=== PATIENT | female | born 1995 | race Caucasian/White ===

== ENCOUNTER 2021-12-02 09:12 | Emergency (ER) | payer BC ==
[~2021-12-02] VITALS: Ht 175.3 cm; Wt 81.6 kg
[2021-12-02 09:28] VITALS: BP 140/85
[2021-12-02] MEDS ORDERED: TORADOL IM STA (09:36)
[2021-12-02] MEDS ORDERED: TORADOL ONE (09:40)
--- NOTE | 2021-12-02 09:40 | ER.PDOC ---
General Chief Complaint: Flank Pain Stated Complaint: FLANK PAIN Time seen by MD: 09:39 Source: patient Exam Limitations: no limitations History of Present Illness Initial Comments Right flank pain radiating to right lower quadrant for the last few days. No fever or chills. She has had kidney stones in the past. She complains of sinus pain, pressure and congestion for the last few days. Severity/Quality: moderate, sharpness Radiation: RLQ Associated Symptoms: nausea/vomiting Exacerbated by: nothing Relieved By: nothing Vital Signs First Vital Signs Date Time Temp Pulse Resp B/P (MAP) Pulse Ox O2 Delivery O2 Flow Rate FiO2 12/02/21 09:28 98.4 82 18 7 09:28 97 12/02/21 09:28 140/85 (103) Room Air* 0 21 Last Vital Signs Date Time Temp Pulse Resp B/P (MAP) Pulse Ox O2 Delivery O2 Flow Rate FiO2 12/02/21 09:28 98.4 82 18 140/85 (103) 97 Room Air* 0 21 Past Medical History Medical History: other (kidney stone) Surgical History: no surgical history Family History Significant Family History: no pertinent family hx Social History Smoking: non-smoker Alcohol Use: rarely Drug Use: none Constitutional: no symptoms reported EENTM: no symptoms reported Respiratory: no symptoms reported Cardiovascular: no symptoms reported Gastrointestinal: see HPI Genitourinary: see HPI All Other Systems: Reviewed and Negative Physical Exam General Appearance: No Apparent Distress, WD/WN HEENT: PERRL/EOMI, Normal ENT Inspection, Other (maxillary sinus tenderness) Neck: Non-Tender, Full Range of Motion, Supple, Normal Inspection Respiratory: chest non-tender, lungs clear, normal breath sounds, no respiratory distress, no accessory muscle use Cardiovascular: Normal Peripheral Pulses, Regular Rate, Rhythm, No Edema, No Gallop, No JVD, No Murmur Gastrointestinal: Normal Bowel Sounds, No Organomegaly, Non Tender Back: CVA Tenderness (R) Extremities: Normal Range of Motion, Non-Tender, Normal Inspection, No Pedal Edema, No Calf Tenderness, Normal Capillary Refill, Pelvis Stable Neurologic/Psychiatric: case management social worker II-XII NML as Tested, No Motor/Sensory Deficits, Alert, Normal Mood/Affect, Oriented x 3 Skin: Normal Color, Warm/Dry Lymphatic: No Adenopathy Results/Orders Results/Orders Orders - KELLY MELENDEZ MD Cbc With Auto Diff (12/02/21 09:36) Comprehensive Metabolic Panel (12/02/21 09:36) PT (12/02/21 09:36) Partial Thromboplastin Time. (12/02/21 09:36) Urinalysis (12/02/21 09:36) Ct Abd/Pelvis Wo Iv Contrast (12/02/21 09:36) Ketorolac Tromethamine (Toradol) (12/02/21 09:36) Hcg Urine (12/02/21 09:38) 0.9 % Sodium Chloride (Ns 1000ml) (12/02/21 10:19) 0.9 % Sodium Chloride (Ns 1000ml) (12/02/21 10:20) Vital Signs Date Time Temp Pulse Resp B/P (MAP) Pulse Ox O2 Delivery O2 Flow Rate FiO2 12/02/21 09:28 98.4 82 18 140/85 (103) 97 Room Air* 0 21 12/02/21 09:28 98.4 82 18 97 12/02/21 09:28 98.4 82 18 Administered Medications Medications (Trade) Dose Ordered Sig/Amena Route PRN Reason Start Time Stop Time Status Last Admin Dose Admin Ketorolac Tromethamine (Toradol) 60 mg STAT STAT IM 12/02/21 09:36 12/02/21 09:37 UNV 12/02/21 09:45 60 MG Sodium Chloride 1,000 ml @ 1,200 mls/hr Q50M STAT IV 12/02/21 10:19 12/02/21 11:08 DC 12/02/21 10:22 1,200 MLS/HR Laboratory Tests Test 12/02/21 09:20 12/02/21 10:03 Urine Collection Type CCMS Urine Color YELLOW Urine Appearance CLOUDY Urine Bilirubin NEGATIVE (NEGATIVE) Urine Ketones 1+ (NEGATIVE) H Urine Specific [place] 1.010 (1.005-1.030) Urine pH 5.5 (4.5-8.0) Urine Protein NEGATIVE (NEGATIVE) Urine Urobilinogen 0.2 E.U./dL (0.2) Urine Nitrate NEGATIVE (NEGATIVE) Urine Leukocyte Esterase NEGATIVE (NEGATIVE) Urine Glucose (Auto)(UA) NEGATIVE (NEGATIVE) Urine Blood 2+ (NEGATIVE) H Urine RBC 2-5 RBC/HPF (NONE SEEN) Urine WBC 0-2 WBC/HPF (0-2) Urine Squamous Epithelial Cells FEW (<=FEW) Urine Bacteria FEW (NONE SEEN) H Urine HCG, Qualitative NEGATIVE (NEGATIVE) White Blood Count 17.1 10^3/uL (4.5-11.0) H Red Blood Count 4.29 10^6/uL (4.00-5.20) Hemoglobin 13.3 g/dL (12.0-15.0) Hematocrit 40.4 % (36.0-46.0) Mean Corpuscular Volume 94.2 fL (78-100) Mean Corpuscular Hemoglobin 31.0 pg (26-34) Mean Corpuscular Hemoglobin Concent 32.9 g/dL (33-36.5) L Red Cell Distribution Width 13.1 % (11.5-14.5) Platelet Count 215 10^3/uL (150-400) Mean Platelet Volume 9.8 fL (7.8-11.0) Neutrophils (%) (Auto) 84.2 % (41.0-85.0) Lymphocytes (%) (Auto) 8.1 % (24.0-44.0) L Monocytes (%) (Auto) 7.1 % (5.0-12.0) Neutrophils # (Auto) 14.4 10^3/uL (1.8-7.7) H Lymphocytes # (Auto) 1.39 10^3/uL1 (1.0-4.8) Monocytes # (Auto) 1.2 10^3/uL (0.3-0.8) H Absolute Immature Granulocyte (auto 0.05 10^3 u/L (0-2) Absolute Eosinophils (auto) 0.0 10^3/uL (0.0-0.2) Immature Granulocytes % 0.30 % (0.00-0.50) Eosinophils % 0.1 % (0.0-5.0) Basophils % 0.2 % (0.0-0.2) Basophils # 0.0 10^3/uL (0.0-0.1) Prothrombin Time 11.5 SEC (9.1-11.5) Prothrombin Time INR (Non-Therap) 1.1 Activated Partial Thromboplast Time 29.6 SEC (22.5-33.1) Sodium Level 133 mmol/L (132-145) Potassium Level 3.4 mmol/L (3.6-5.2) L Chloride Level 101.0 mmol/L (96-109) Carbon Dioxide Level 19.0 mmol/L (20.0-32) L Anion Gap 16.4 Blood Urea Nitrogen 9 mg/dL (7-18) Creatinine 0.62 mg/dL (0.59-1.40) Estimated GFR () 139.7 (>/=60) Est GFR (CKD-EPI)(Non-Afr [place]) 115.5 (>/=60) BUN/Creatinine Ratio 14.0 Glucose Level 99 mg/dL (70-110) Calcium Level 9.0 mg/dL (8.4-10.5) Total Bilirubin 0.5 mg/dL (0.2-1.0) Aspartate Amino Transferase (AST) 17 U/L (0-35) Alanine Aminotransferase (ALT) 27 U/L (12-78) Alkaline Phosphatase 93 U/L (50-136) Total Protein 7.6 g/dL (6.4-8.2) Albumin 3.5 g/dL (3.4-5.0) Globulin 4.1 Albumin/Globulin Ratio 0.[address] head: . Small right renal calculi. No obstructive uropathy. 2. No acute process. Chemistry show potassium of 3.4, rest of chemistry is unremarkable. Urinalysis shows some blood and ketones but no UTI. WBC 17.1 from sinus infection. She received a liter of fluid. She had Toradol shot. She is currently pain-free. She is feeling better to go home. She received a gram of Rocephin. ER DEPART Departure Time of Disposition: 11:40 Disposition: 01 HOME / SELF CARE / HOMELESS Impression: Primary Impression: Flank pain, acute Additional Impressions: Kidney stone on right side Dehydration Sinusitis, acute maxillary Condition: Improved Referrals: PCP,UNKNOWN (PCP) PRIMARY CARE PROVIDER Additional Instructions: Augmentin Ibuprofen Follow-up with your PCP in 2 to 3 days Return to ED if worsening symptoms or concerns Duration or Time Spent with Pa: 60 min Problem Qualifiers Additional Impressions: Sinusitis, acute maxillary Recurrence: non-recurrent Qualified Codes: J01.00 - Acute maxillary sinusitis, unspecified KELLY MELENDEZ MD Dec 02, 2021 09:40
[2021-12-02 09:48] LABS: BILIRUBIN,URINE NEGATIVE (NEGATIVE); UROBILINOGEN,URINE 0.2 E.U./dL (0.2)
[2021-12-02 10:15] LABS: BASOPHIL % 0.2 % (0.0-0.2); EOSINOPHIL % 0.1 % (0.0-5.0); LYMPHOCYTES # 1.39 10^3/uL1 (1.0-4.8); LYMPHOCYTES % 8.1 % (24.0-44.0); MONOCYTES # 1.2 10^3/uL (0.3-0.8); MONOCYTES % 7.1 % (5.0-12.0); NEUTROPHIL # 14.4 10^3/uL (1.8-7.7); NEUTROPHILS % 84.2 % (41.0-85.0); PLATELET COUNT 215 10^3/uL (150-400); RED CELL DISTRIBUTION WIDTH 13.1 % (11.5-14.5)
[2021-12-02] MEDS ORDERED: NS 1000ML 1,000 ML IV STA (10:19)
[2021-12-02] MEDS ORDERED: NS 1000ML 1,000 ML ONE (10:20)
--- NOTE | 2021-12-02 10:29 | NUR ---
Ambulatory to rm 7. Pt is A/O. Reports R side flank pain radiates to R back, rates pain 8/10. Pt reports history of kidney stones. Orders received. Pt is back from CT. IVF initiated. 20gRfa.
--- NOTE | 2021-12-02 10:47 | DIREP ---
PROCEDURE:CT ABD/PELVIS WITHOUT CONTRAST TECHNIQUE:No oral contrast was given. Axial cuts were obtained through the abdomen and pelvis without IV contrast. The images were viewed at lung and soft tissue settings. Sagittal and coronal reconstructions are provided. COMPARISON:None. INDICATIONS:Right flank pain FINDINGS: LOWER CHEST:No infiltrate or pleural effusion. LIVER:Normal. BILIARY:No gallstones or biliary duct dilatation. PANCREAS:Normal. SPLEEN:Normal. URINARY TRACT:0.2 cm and punctate right lower pole stones. No ureteral stone, obstruction or perinephric inflammation. Unremarkable urinary bladder. ADRENALS:Normal. AORTA/VASCULAR:Normal. RETROPERITONEUM:Normal. BOWEL/MESENTERY:No bowel obstruction, inflammatory stranding, free fluid or air. Right lower quadrant dystrophic calcification suggestive of sequela of epiploic appendagitis. Normal appendix. ABDOMINAL WALL:Normal. PELVIS:IUD appears in satisfactory position. BONES:Right L5 pars lysis. No spondylolisthesis. Prominent right inferior SI joint sclerosis consistent with degenerative changes or sacroiliitis. OTHER:Normal. CONCLUSION: 1. Small right renal calculi. No obstructive uropathy. 2. No acute process. Dictated by: Jesenia Braswell MD on 12/02/2021 at 10:39 AM
[2021-12-02 11:38] VITALS: BP 109/64
[2021-12-02] MEDS ORDERED: ROCEPHIN 1,000 MG in NS 100ML 100 ML IV STA (11:41)
[2021-12-02] MEDS ORDERED: ROCEPHIN ONE (11:43)
[2021-12-02] MEDS ORDERED: NS 100ML 100 ML IV ONE (11:43)
== END 2021-12-02 12:14 | disposition home or self-care (01) ==
LOC: ER 09:12
DX: R10.31 Right lower quadrant pain (principal); E86.0 Dehydration; J01.00 Acute maxillary sinusitis, unspecified; Z87.442 Personal history of urinary calculi
CPT/HCPCS: 36415; 74176; 80053; 81001; 81025; 85025; 85610; 85730; 87086; 96361; 96365; 96372; 99284; J0696; J1885; J7030